=== PATIENT | male | born 1980 | race Caucasian/White ===

== ENCOUNTER 2016-10-06 15:23 | Emergency (ER) | payer OTHER ==
[~2016-10-06] VITALS: Ht 190.5 cm; Wt 122.7 kg
[2016-10-06 15:29] VITALS: BP 153/95; PULSE 76; RESP 16; O2SAT 98
--- NOTE | 2016-10-06 15:48 | ED.REPORT ---
HPI-Rash / Abscess Date of Service Oct 06, 2016 ED Provider: Yovani Collins PA-C Vance is an otherwise healthy 35-year-old male with a chief complaint of painful lump on his left shoulder/neck. Patient states that he initially thought was a pimple but has grown significantly become more painful over the last 3 days. Denies fever, chills, fatigue, nausea/vomiting, abdominal pain, diarrhea. Denies diabetes, immunocompromise, MRSA exposure. Nursing Notes Stated Complaint: LUMP ON BACK OF NECK Chief Complaint: Skin Rash/Abscess Nursing Notes Reviewed: Yes Allergies: Coded Allergies: No Known Allergies (Unverified , 10/06/16) General Time Seen by MD: 15:37 Chief Complaint Abscess Review of Systems Negative unless stated otherwise in history of present illness Physical Exam General: Well developed, well nourished, no acute distress. Head: Atraumatic, normocephalic. Eyes: No scleral icterus or injection. No discharge. Vision grossly intact. ENT: Voice clear, hearing grossly intact. Skin: Warm and dry. 5 cm x 4 cm area of firm redness and swelling, with a 1 cm central area of fluctuance, at the base of the posterior neck. Neurological: Grossly nonfocal. Psychological: alert and oriented. Speech appropriate, linear and logical. Behavior appropriate. Initial Vital Signs Vital Signs (First) Date Time Temp Pulse Resp B/P Pulse Ox O2 Delivery O2 Flow Rate FiO2 10/06/16 15:29 36.6 76 16 153/95 98 Room Air Initial VS: Reviewed Procedures Incision & Drainage Abscess Procedure Performed by: Allied health pract Consent / Setup / Site Prep: Informed consent provided, Consent from patient , Hand hygiene observed Skin Preparation Agent: Betadine Local Anesthesia: Lidocaine 1%, 3cc, 27g needle Incised Abscess with Scalpel: #11 Pus Drained: Medium, Purulent discharge, Bloody Irrigation: 50 cc Post-Procedure / Complications: Packing placed, Gram stain ordered, Dressing applied, No complications, Condition improved, Tolerated procedure well , Patient stable Discharge & Departure Departure Notes Elevated BP Impression: Primary Impression: Abscess Additional Impression: Blood pressure elevated Disposition: Home Discharge Condition All VS Reviewed: Yes Condition: Stable Patient Instructions: Abscess Incision and Drainage (ED) Additional Instructions: Evaluation for an abscess in the ED today. We drained a medium sized abscess on your left shoulder and placed a wick in it. I took a sample for culturing as well. You will be notified if the results indicate a change in treatment plan. Face dry warm compresses over the affected area twice a day for the next 2 days to encourage drainage. Pain can be treated with [id number] ibuprofen (Motrin) or acetaminophen (Tylenol). These can be taken at the same time for more severe pain. Since you are away from home, it makes the most sense for you to return to the emergency department in 2 days for a wound check , to make sure this is progressing as expected. Return sooner for any new or worsening symptoms. I also noticed that your blood pressure is moderately elevated today. While this is not related to the reason for your visit, I suggested to follow up with your primary care physician about it when you return home Referrals: [facility] Provider for [facility]: Chris Gonsalves MD, Seth PA-C Oct 06, 2016 15:48
== END 2016-10-06 16:45 | disposition home or self-care (01) ==
LOC: SED 15:23
DX: L02.412 Cutaneous abscess of left axilla (principal); I10 Essential (primary) hypertension